=== PATIENT | female | born 1950 | race Caucasian/White ===

== ENCOUNTER 2022-11-15 07:37 | Day surgery (SDC) | payer BC ==
[~2022-11-15] VITALS: Ht 157.5 cm; Wt 77.3 kg
[2022-11-15 08:43] VITALS: O2SAT 97
[2022-11-15] MEDS ORDERED: MEPERIDINE 100 MG INJ. 100 MG/ML VIAL ONE (09:33)
[2022-11-15] MEDS ORDERED: MIDAZOLAM HCL 5 MG/5 ML VIAL ONE (09:33)
[2022-11-15 13:17] VITALS: BP_SYST 181; PULSE 84; RESP 10
== END 2022-11-15 11:45 | disposition home or self-care (01) ==
LOC: SDS 07:37
PROVIDERS: ATTEND Internal Medicine Gastroenterology
DX: R13.10 Dysphagia, unspecified (principal); K29.50 Unspecified chronic gastritis without bleeding; K29.80 Duodenitis without bleeding; R10.9 Unspecified abdominal pain; M19.90 Unspecified osteoarthritis, unspecified site; F17.210 Nicotine dependence, cigarettes, uncomplicated; K21.9 Gastro-esophageal reflux disease without esophagitis; E78.00 Pure hypercholesterolemia, unspecified; Z79.899 Other long term (current) drug therapy
CPT/HCPCS: 43239; 87081; 36415; 88305; 88312; 88313; 99152; G0378; J2250; J2175